=== PATIENT | male | born 1970 | race African-American/Black ===

== ENCOUNTER 2016-10-25 07:34 | Emergency (ER) | payer OTHER ==
[~2016-10-25] VITALS: Ht 182.9 cm; Wt 116.0 kg
[2016-10-25 07:36] VITALS: BP 141/94; PULSE 78; RESP 20; TEMP 98.1; O2SAT 97
[2016-10-25] MEDS ORDERED: FLUT1SPR5 EACH NARE (08:11)
[2016-10-25] MEDS ORDERED: ALLE60TA PO (08:11)
[2016-10-25] MEDS ORDERED: BUTA1CAP PO (08:11)
--- NOTE | 2016-10-25 08:11 | PD ---
HPI . Headache Chief Complaint: Headache Time Seen by Provider: 08:06 Travel History International Travel<30 days: No Contact w/Intl Traveler<30days: No Traveled to known affect area: No History of Present Illness HPI This patient presents complaining with headaches for the last week. He describes frontal headaches which come and go. He describes a pulling sensation. He states that he had a pretty bad headache when he awakened this morning when she rated 8/10. He decided to come here [facility]. He states that the headache is spontaneously improving and is now rated 5/10. He states that he has been taking Advil for the headache with some relief. He states that the headache is associated with some nasal congestion and sneezing. He also states that he has been driving a lot lately and thinks that he might be fatigue. He denies any nausea, blurred vision, fever. PFSH Past Medical History Medical History: Denies Significant Hx Diminished Hearing: No Tetanus Vaccination: Unknown Social History Alcohol Use: Yes (OCCASIONAL) Tobacco Use: No Substance Use: No Allergies-Medications (Allergen,Severity, Reaction): Coded Allergies: No Known Allergies (Verified , 10/25/16) Reported Meds & Prescriptions Reported Meds & Active Scripts Active No Active Prescriptions or Reported Medications Review of Systems Except as stated in HPI: all other systems reviewed are Neg General / Constitutional: No: Fever, Chills Eyes: No: Diploplia, Blurred Vision HENT: Positive: Headaches, Congestion, Other (sneezing) Gastrointestinal: No: Nausea Physical Exam Narrative GENERAL: Awake and alert and in no acute distress. SKIN: Warm and dry. HEAD: Atraumatic. Normocephalic. EYES: Pupils equal and round. Extraocular movements are intact. ENT: Mild edema of the nasal mucosa with a scant amount of mucopurulent rhinorrhea. NECK: Trachea midline. Neck is supple. There is no cervical lymphadenopathy. CARDIOVASCULAR: Regular rate and rhythm. RESPIRATORY: No accessory muscle use. MUSCULOSKELETAL: No obvious deformities. No edema. NEUROLOGICAL: Awake and alert. No obvious cranial nerve deficits. Motor grossly within normal limits. Normal speech. Gait and pkqsgj-ilgr-trzgrc exam are intact. PSYCHIATRIC: Appropriate mood and affect; insight and judgment normal. Data Data Last Documented VS Vital Signs Date Time Temp Pulse Resp B/P (MAP) Pulse Ox O2 Delivery O2 Flow Rate FiO2 10/25/16 07:45 69 20 98 Room Air 10/25/16 07:36 98.1 141/94 (110) [facility] Medical Decision Making Medical Screen Exam Complete: Yes Emergency Medical Condition: Yes Differential Diagnosis Differential diagnosis of headache includes but is not limited to migraine, muscle contraction headache, brain tumor, brain bleed Narrative Course This patient presents complaining with a frontal headache. His exam is benign. I have explained to the patient that I do not believe that he needs any imaging studies. He agrees. He drove himself here so I cannot give him my "headache cocktail." I will discharge him to home with a prescription for Fioricet. Diagnosis Primary Impression: Headache Qualified Codes: G44.209 - Tension-type headache, unspecified, not intractable Additional Impression: Seasonal allergies Qualified Codes: J30.1 - Allergic rhinitis due to pollen Patient Instructions: Acute Headache (DC), Allergies (ED), General Instructions Med/Other Pt SpecificInfo: Prescription(s) given Scripts Fluticasone Nasal [place] (Flonase Nasal [place]) 50 Mcg/Act [place] 50 MCG EACH NARE BID for Allergies, #1 BOTTLE 0 Refills Prov: Camelia Lee MD 10/25/16 Fexofenadine ([facility]) 60 Mg Tab 60 MG PO BID for Allergy Management, #60 TAB 0 Refills Prov: Camelia Lee MD 10/25/16 Tktwudclyi-Hygvppgwhmfdx-Egqldsst (Fioricet) 50-300-40 Mg Cap 1 CAP PO Q4H Y for HEADACHE, #12 CAP 0 Refills Prov: Camelia Lee MD 10/25/16 Disposition: 01 DISCHARGE HOME Condition: Stable Camelia Lee MD Oct 25, 2016 08:11
== END 2016-10-25 09:10 | disposition home or self-care (01) ==
LOC: NEPE 07:34
DX: R51 Headache (principal); J30.2 Other seasonal allergic rhinitis
CPT/HCPCS: 99283